=== PATIENT | male | born 1945 | race Caucasian/White ===

== ENCOUNTER 2023-07-11 20:30 | Inpatient (IN) | payer OTHER ==
[~2023-07-11] VITALS: Ht 177.8 cm; Wt 81.6 kg
[2023-07-11 20:30] VITALS: BP 180/92; PULSE 79; RESP 17; TEMP 97.8; O2SAT 100
[2023-07-11 20:51] LABS: BASOPHILS # (AUTO) 0.1 K/uL (0.00-0.22); BASOPHILS % (AUTO) 0.8 % (0.0-2.0); EOSINOPHILS # (AUTO) 0.1 K/uL (0-0.4); EOSINOPHILS % (AUTO) 0.9 % (0.0-4.0); HEMOGLOBIN 9.5 g/dL (12.0-18.0); LYMPHOCYTES # (AUTO) 1.3 K/uL (2.0-11.5); LYMPHOCYTES % (AUTO) 11.2 % (20.5-51.1); MEAN CORPUSCULAR HEMOGLOBIN 28 pg (27-31); MEAN CORPUSCULAR HGB CONC 33 g/dL (33-37); MEAN CORPUSCULAR VOLUME 84.2 fL (80-94); MONOCYTES % (AUTO) 8.5 % (1.7-9.3); NEUTROPHILS % (AUTO) 78.6 % (42.2-75.2); PLATELET COUNT (AUTO) 265 K/uL (140-450); RED BLOOD CELL COUNT(AUTO) 3.44 MIL/uL (4.20-6.10); RED CELL DISTRIBUTION WIDTH 16.5 % (11.6-13.7); WHITE BLOOD COUNT (AUTO) 11.4 K/uL (4.8-10.8)
[2023-07-11] MEDS: predniSONE 20 MG TAB PO ONE (20:52)
[2023-07-11] MEDS: IPRATROPIUM 0.02% 0.5 MG/2.5 ML NEBU INH ONE (20:54)
[2023-07-11] MEDS: ALBUTEROL 0.083% 2.5 MG/3 ML NEBU INH ONE (20:55)
[2023-07-11 20:58] VITALS: PULSE 94; PULSE 97; RESP 16; O2SAT 100
[2023-07-11 20:58] LABS: ANION GAP 7.6 (8-16); CALCIUM 8.7 mg/dL (8.5-10.1); CARBON DIOXIDE 29.6 mmol/L (21-32); CHLORIDE 102 mmol/L (98-107); CREATININE 1.8 mg/dL (0.6-1.3); GLUCOSE 109 mg/dL (74-106); POTASSIUM 4.2 mmol/L (3.5-5.1); SODIUM SERUM 135 mmol/L (136-145); UREA NITROGEN, BLOOD 31 mg/dL (7-18)
[2023-07-11 21:14] VITALS: O2SAT 99
[2023-07-11] MEDS: FUROSEMIDE 40 MG/4 ML VIAL IVP ONE (22:20)
[2023-07-11] MEDS: AZITHROMYCIN 500 MG in DEXTROSE 5% 250 ML IV SCH (23:20)
[2023-07-11] MEDS ORDERED: ONDANSETRON 4 MG/2 ML VIAL IVP PRN (23:20)
[2023-07-11] MEDS ORDERED: ZOLPIDEM 5 MG TAB PO PRN (23:20)
[2023-07-11] MEDS ORDERED: ACETAMINOPHEN 325 MG TAB PO PRN (23:20)
[2023-07-11] MEDS ORDERED: HYDROcodone/APAP 5/325 MG 1 TAB TAB PO PRN (23:20)
[2023-07-11] MEDS ORDERED: hydrALAZINE 25 MG TAB PO PRN (23:25)
[2023-07-11 23:45] LABS: LACTIC ACID 0.9 mmol/L (0.4-2.0)
[2023-07-11] MEDS ORDERED: cefTRIAXone 1,000 MG VIAL ONE (23:50)
[2023-07-11] MEDS ORDERED: AZITHROMYCIN 500 MG INJ VIAL IV ONE (23:58)
[2023-07-12] VITALS (14 sets, daily range): BP systolic 125–160; BP diastolic 75–89; PULSE 19–101; RESP 18–24; TEMP 96.9–98; O2SAT 96–99
[2023-07-12] MEDS ORDERED: ROB PO (00:07)
[2023-07-12] MEDS ORDERED: ALBU2SYR98 PO (00:07)
[2023-07-12] MEDS ORDERED: HYDR25TA32 PO (00:07)
[2023-07-12] MEDS ORDERED: DORZ10SO22 OP (00:07)
[2023-07-12] MEDS ORDERED: BIMA2.5S3 OP (00:07)
[2023-07-12] MEDS ORDERED: CEFU500T73 PO (00:07)
[2023-07-12] MEDS ORDERED: AMLO10TA PO (00:07)
[2023-07-12] MEDS ORDERED: FLUT1DSK2 IH (00:07)
[2023-07-12] MEDS ORDERED: IRBE300T36 PO (00:08)
[2023-07-12] MEDS ORDERED: SIMV-373 PO (00:08)
[2023-07-12] MEDS ORDERED: FLOR250 PO (00:08)
[2023-07-12] MEDS ORDERED: PRED20TA5 PO (00:08)
[2023-07-12] MEDS: AZITHROMYCIN 500 MG in DEXTROSE 5% 250 ML IV ONE (00:11)
[2023-07-12] MEDS: ENOXAPARIN 80 MG/0.8 ML SYR SUBQ ONE (00:13)
[2023-07-12] MEDS ORDERED: CLONIDINE HYDROCHLORIDE 0.1 MG TAB PO PRN (00:35)
[2023-07-12 08:17] LABS: BASOPHILS % (AUTO) 0.1 % (0.0-2.0); HEMATOCRIT 30.5 % (36-52); LYMPHOCYTES # (AUTO) 0.4 K/uL (2.0-11.5); LYMPHOCYTES % (AUTO) 6.2 % (20.5-51.1); MEAN CORPUSCULAR HEMOGLOBIN 28 pg (27-31); MEAN CORPUSCULAR HGB CONC 33 g/dL (33-37); MEAN CORPUSCULAR VOLUME 84.2 fL (80-94); MONOCYTES % (AUTO) 0.5 % (1.7-9.3); NEUTROPHILS # (AUTO) 6.7 K/uL (1.8-7.7); NEUTROPHILS % (AUTO) 93.2 % (42.2-75.2); PLATELET COUNT (AUTO) 275 K/uL (140-450); RED BLOOD CELL COUNT(AUTO) 3.62 MIL/uL (4.20-6.10); RED CELL DISTRIBUTION WIDTH 16.9 % (11.6-13.7); WHITE BLOOD COUNT (AUTO) 7.2 K/uL (4.8-10.8)
[2023-07-12 08:36] LABS: ALANINE AMINOTRANSFERASE 34 U/L (12-78); ALBUMIN 2.8 g/dL (3.4-5.0); ALKALINE PHOSPHATASE 156 U/L (50-136); ANION GAP 12.9 (8-16); ASPARTATE AMINOTRANSFERASE 30 U/L (15-37); CALCIUM 8.6 mg/dL (8.5-10.1); CARBON DIOXIDE 28.1 mmol/L (21-32); CHLORIDE 99 mmol/L (98-107); CREATININE 1.6 mg/dL (0.6-1.3); GLUCOSE 138 mg/dL (74-106); MAGNESIUM 1.9 mg/dL (1.8-2.4); PHOSPHORUS 4.1 mg/dL (2.5-4.9); SODIUM SERUM 136 mmol/L (136-145); TOTAL BILIRUBIN 0.4 mg/dL (0.0-1.0); TOTAL PROTEIN, SERUM 7.3 g/dL (6.4-8.2); UREA NITROGEN, BLOOD 27 mg/dL (7-18)
[2023-07-12] MEDS ORDERED: FUROSEMIDE 20 MG/2 ML VIAL IVP SCH (09:00)
[2023-07-12] MEDS: DOCUSATE SODIUM 100 MG GELCAP PO SCH (09:27)
[2023-07-12] MEDS: methylPREDNISolone SS 40 MG/ML VIAL IVP SCH ×2 (09:28)
[2023-07-12] MEDS: FUROSEMIDE 20 MG/2 ML VIAL IVP SCH (09:28)
[2023-07-12] MEDS: ENOXAPARIN 40 MG/0.4 ML SYR SUBQ SCH (09:31)
[2023-07-12] MEDS: ALBUTEROL SULFATE/IPRATROPIU 3 ML SOL IH SCH (11:50)
[2023-07-13] VITALS (15 sets, daily range): BP systolic 128–142; BP diastolic 56–90; PULSE 68–93; RESP 14–20; TEMP 97.3–98.6; O2SAT 94–99
[2023-07-13 05:07] LABS: BASOPHILS % (AUTO) 0.1 % (0.0-2.0); HEMATOCRIT 28.2 % (36-52); HEMOGLOBIN 9.1 g/dL (12.0-18.0); LYMPHOCYTES # (AUTO) 1.1 K/uL (2.0-11.5); LYMPHOCYTES % (AUTO) 8.4 % (20.5-51.1); MEAN CORPUSCULAR HEMOGLOBIN 27 pg (27-31); MEAN CORPUSCULAR HGB CONC 32 g/dL (33-37); MEAN CORPUSCULAR VOLUME 83.7 fL (80-94); MONOCYTES # (AUTO) 1.2 K/uL (0.8-1.0); MONOCYTES % (AUTO) 9.6 % (1.7-9.3); NEUTROPHILS # (AUTO) 10.4 K/uL (1.8-7.7); NEUTROPHILS % (AUTO) 81.9 % (42.2-75.2); PLATELET COUNT (AUTO) 263 K/uL (140-450); RED BLOOD CELL COUNT(AUTO) 3.37 MIL/uL (4.20-6.10); RED CELL DISTRIBUTION WIDTH 16.9 % (11.6-13.7); WHITE BLOOD COUNT (AUTO) 12.7 K/uL (4.8-10.8)
[2023-07-13 05:56] LABS: ALANINE AMINOTRANSFERASE 32 U/L (12-78); ALBUMIN 2.7 g/dL (3.4-5.0); ALKALINE PHOSPHATASE 130 U/L (50-136); ANION GAP 7.7 (8-16); ASPARTATE AMINOTRANSFERASE 29 U/L (15-37); CALCIUM 8.9 mg/dL (8.5-10.1); CARBON DIOXIDE 34.4 mmol/L (21-32); CHLORIDE 99 mmol/L (98-107); CREATININE 1.9 mg/dL (0.6-1.3); GLUCOSE 131 mg/dL (74-106); PHOSPHORUS 4.2 mg/dL (2.5-4.9); POTASSIUM 4.1 mmol/L (3.5-5.1); SODIUM SERUM 137 mmol/L (136-145); TOTAL BILIRUBIN 0.2 mg/dL (0.0-1.0); TOTAL PROTEIN, SERUM 6.8 g/dL (6.4-8.2); UREA NITROGEN, BLOOD 23 mg/dL (7-18)
[2023-07-13] MEDS: ATORVASTATIN 20 MG TAB PO SCH (09:52)
[2023-07-13] MEDS: ECOTRIN 81 MG TABEC PO SCH (09:52)
[2023-07-13] MEDS: FUROSEMIDE 40 MG/4 ML VIAL IVP SCH (18:19)
[2023-07-13] MEDS: carvediloL 3.125 MG TAB PO SCH (22:16)
[2023-07-14] VITALS (8 sets, daily range): BP systolic 131–157; BP diastolic 66–82; PULSE 77–97; RESP 16–20; TEMP 97.2–98.6; O2SAT 94–98
[2023-07-14 05:27] LABS: BASOPHILS % (AUTO) 0.2 % (0.0-2.0); EOSINOPHILS % (AUTO) 0.2 % (0.0-4.0); HEMATOCRIT 29.1 % (36-52); HEMOGLOBIN 9.4 g/dL (12.0-18.0); LYMPHOCYTES # (AUTO) 1.8 K/uL (2.0-11.5); MEAN CORPUSCULAR HEMOGLOBIN 27 pg (27-31); MEAN CORPUSCULAR HGB CONC 32 g/dL (33-37); MEAN CORPUSCULAR VOLUME 83.8 fL (80-94); MONOCYTES # (AUTO) 1.1 K/uL (0.8-1.0); MONOCYTES % (AUTO) 9.6 % (1.7-9.3); NEUTROPHILS # (AUTO) 8.3 K/uL (1.8-7.7); PLATELET COUNT (AUTO) 298 K/uL (140-450); RED BLOOD CELL COUNT(AUTO) 3.48 MIL/uL (4.20-6.10); RED CELL DISTRIBUTION WIDTH 16.7 % (11.6-13.7); WHITE BLOOD COUNT (AUTO) 11.2 K/uL (4.8-10.8)
[2023-07-14 06:00] LABS: ALANINE AMINOTRANSFERASE 33 U/L (12-78); ALBUMIN 2.8 g/dL (3.4-5.0); ALKALINE PHOSPHATASE 128 U/L (50-136); ANION GAP 7.3 (8-16); ASPARTATE AMINOTRANSFERASE 35 U/L (15-37); CALCIUM 8.9 mg/dL (8.5-10.1); CARBON DIOXIDE 36.3 mmol/L (21-32); CHLORIDE 97 mmol/L (98-107); CREATININE 1.7 mg/dL (0.6-1.3); GLUCOSE 100 mg/dL (74-106); MAGNESIUM 1.9 mg/dL (1.8-2.4); POTASSIUM 3.6 mmol/L (3.5-5.1); SODIUM SERUM 137 mmol/L (136-145); TOTAL BILIRUBIN 0.3 mg/dL (0.0-1.0); TOTAL PROTEIN, SERUM 6.8 g/dL (6.4-8.2); UREA NITROGEN, BLOOD 37 mg/dL (7-18)
[2023-07-14] MEDS ORDERED: CEFD300C3 PO (10:17)
[2023-07-14] MEDS ORDERED: FURO-570 PO ×2 (10:17→16:46)
[2023-07-14] MEDS: GAUZE TP SCH (13:12)
[2023-07-14] MEDS: FUROSEMIDE 40 MG TAB PO SCH (16:44)
[2023-07-15 00:10] VITALS: PULSE 80; RESP 20; O2SAT 98
[2023-07-15 04:00] VITALS: BP 150/59; PULSE 84; RESP 18; TEMP 97.6; O2SAT 96
[2023-07-15 04:28] VITALS: PULSE 81; RESP 18; O2SAT 94
[2023-07-15 05:49] LABS: BASOPHILS % (AUTO) 0.6 % (0.0-2.0); EOSINOPHILS # (AUTO) 0.1 K/uL (0-0.4); EOSINOPHILS % (AUTO) 1.3 % (0.0-4.0); HEMATOCRIT 27.9 % (36-52); HEMOGLOBIN 9.2 g/dL (12.0-18.0); LYMPHOCYTES # (AUTO) 1.7 K/uL (2.0-11.5); LYMPHOCYTES % (AUTO) 20.8 % (20.5-51.1); MEAN CORPUSCULAR HEMOGLOBIN 28 pg (27-31); MEAN CORPUSCULAR HGB CONC 33 g/dL (33-37); MONOCYTES # (AUTO) 1.1 K/uL (0.8-1.0); MONOCYTES % (AUTO) 13.9 % (1.7-9.3); NEUTROPHILS # (AUTO) 5.1 K/uL (1.8-7.7); NEUTROPHILS % (AUTO) 63.4 % (42.2-75.2); PLATELET COUNT (AUTO) 283 K/uL (140-450); RED BLOOD CELL COUNT(AUTO) 3.36 MIL/uL (4.20-6.10); RED CELL DISTRIBUTION WIDTH 16.4 % (11.6-13.7); WHITE BLOOD COUNT (AUTO) 8.1 K/uL (4.8-10.8)
[2023-07-15 06:23] LABS: ALANINE AMINOTRANSFERASE 35 U/L (12-78); ALBUMIN 2.7 g/dL (3.4-5.0); ALKALINE PHOSPHATASE 116 U/L (50-136); ANION GAP 9.4 (8-16); ASPARTATE AMINOTRANSFERASE 37 U/L (15-37); CALCIUM 8.7 mg/dL (8.5-10.1); CARBON DIOXIDE 36.1 mmol/L (21-32); CHLORIDE 95 mmol/L (98-107); CREATININE 1.6 mg/dL (0.6-1.3); GLUCOSE 98 mg/dL (74-106); MAGNESIUM 1.9 mg/dL (1.8-2.4); PHOSPHORUS 4.1 mg/dL (2.5-4.9); POTASSIUM 3.5 mmol/L (3.5-5.1); SODIUM SERUM 137 mmol/L (136-145); TOTAL BILIRUBIN 0.4 mg/dL (0.0-1.0); TOTAL PROTEIN, SERUM 6.6 g/dL (6.4-8.2); UREA NITROGEN, BLOOD 37 mg/dL (7-18)
[2023-07-15 08:00] VITALS: PULSE 78; PULSE 84; RESP 18; O2SAT 96
[2023-07-15 08:23] VITALS: PULSE 86; RESP 20; O2SAT 96
[2023-07-15] MEDS: LOSARTAN 25 MG TAB PO SCH (08:41)
== END 2023-07-15 18:15 | disposition home health service (06) | DRG 280 ==
LOC: MED 20:30 → MTU 23:25 → OBSVTOIN 07-12 10:04 → MTU 07-12 20:20
PROVIDERS: ADMIT Internal Medicine; ATTEND Internal Medicine
DX: I21.4 Non-ST elevation (NSTEMI) myocardial infarction (principal); I50.23 Acute on chronic systolic (congestive) heart failure; J96.21 Acute and chronic respiratory failure with hypoxia; N17.9 Acute kidney failure, unspecified; I42.9 Cardiomyopathy, unspecified; I16.0 Hypertensive urgency; I11.0 Hypertensive heart disease with heart failure; E78.5 Hyperlipidemia, unspecified; F17.200 Nicotine dependence, unspecified, uncomplicated; Z88.8 Allergy status to other drugs, medicaments and biological substances; J44.9 Chronic obstructive pulmonary disease, unspecified
CPT/HCPCS: 96365; 96367; 96372; 96375; 99291; G0378; 36415; 71045; 80048; 80053; 83605; 83735; 83880; 84100; 84484; 85025; 87040; 87081; 93005; 94640; 97116; 97163-GP; 97530; J0456; J0696; J1650; J1940; J2920; J7060; J7512; J7613; J7644; Q0092